=== PATIENT | male | born 1935 | race Caucasian/White ===

== ENCOUNTER 2018-11-19 21:43 | Emergency (ER) | payer MEDICARE ==
[2018-11-19 22:22] LABS: BASOPHILS % (AUTO) 0.6 % (0.0-5.0); LYMPHOCYTES % (AUTO) 29.9 % (21.0-51.0); MEAN CORPUSCULAR HGB CONC 32.3 g/dL (32.0-36.0); MEAN CORPUSCULAR VOLUME 86.7 fL (79-99); MONOCYTES % (AUTO) 9.9 % (3.0-13.0); NEUTROPHILS % (AUTO) 58.6 % (40.0-77.0); PLATELET COUNT (AUTO) 155 K/uL (130-400); RED BLOOD CELL COUNT(AUTO) 4.49 MIL/uL (4.50-6.20); RED CELL DISTRIBUTION WIDTH 16.6 % (11.0-15.5); WHITE BLOOD COUNT (AUTO) 5.5 K/uL (4.8-10.8)
[2018-11-19 22:34] LABS: POTASSIUM 3.9 mmol/L (3.5-5.1)
[2018-11-19 22:38] LABS: INR 2.6 (0.85-1.15); PARTIAL THROMBOPLASTIN TIME 44.4 SEC (26.3-35.5); PROTHROMBIN TIME 26.8 SEC (9.6-11.6)
[2018-11-19 22:39] LABS: ALBUMIN 3.6 g/dL (3.5-5.0); BILIRUBIN,TOTAL 0.7 mg/dL (0.2-1.0); TOTAL PROTEIN, SERUM 6.9 g/dL (6.0-8.3)
[2018-11-19] MEDS ORDERED: LIDOCAINE HCL 1% 20 ML VIAL ONE (22:39)
== END 2018-11-19 23:31 | disposition home or self-care (01) ==
LOC: EDH 21:43
DX: S01.01XA Laceration without foreign body of scalp, initial encounter (principal); S40.011A Contusion of right shoulder, initial encounter; E78.5 Hyperlipidemia, unspecified; I10 Essential (primary) hypertension; M19.90 Unspecified osteoarthritis, unspecified site; I25.810 Atherosclerosis of coronary artery bypass graft(s) without angina pectoris; I48.91 Unspecified atrial fibrillation; Z79.899 Other long term (current) drug therapy; W18.39XA Other fall on same level, initial encounter; Y93.01 Activity, walking, marching and hiking; Y92.89 Other specified places as the place of occurrence of the external cause; Y99.8 Other external cause status
CPT/HCPCS: 12002; 36415; 70450; 70486; 72125; 80053; 82550; 84484; 85025; 85610; 85730; 93005

== ENCOUNTER 2018-11-27 10:53 | Emergency (ER) | payer MEDICARE | END 2018-11-27 11:10 | disposition home or self-care (01) | LOC: EDH 10:53 | DX: S01.01XD Laceration without foreign body of scalp, subsequent encounter (principal); I48.91 Unspecified atrial fibrillation; I25.10 Atherosclerotic heart disease of native coronary artery without angina pectoris; E78.5 Hyperlipidemia, unspecified; I10 Essential (primary) hypertension; Z87.891 Personal history of nicotine dependence; Z79.01 Long term (current) use of anticoagulants; X58.XXXD Exposure to other specified factors, subsequent encounter | CPT/HCPCS: 99281 ==